=== PATIENT | male | born 1995 | race Caucasian/White ===

== ENCOUNTER 2019-09-22 14:45 | Emergency (ER) | payer BC, SELFPAY ==
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
[2019-09-22 14:52] VITALS: BP 145/87; PULSE 89; RESP 18; O2SAT 100
[2019-09-22] MEDS: SODIUM CHLORIDE 0.9% 1,000 ML 1000 ML IV (15:15)
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
[2019-09-22 15:19] VITALS: BP 129/88; PULSE 95; RESP 16; O2SAT 99
[2019-09-22 15:27] VITALS: BP 157/96; PULSE 102; RESP 26; O2SAT 97; O2SAT 99
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
[2019-09-22 15:33] VITALS: BP 138/94; PULSE 103; RESP 24; O2SAT 100
--- NOTE | 2019-09-22 15:36 | PC.NURSE ---
Reduction complete. pt tolerated well. NAD. Pt awake alert and oriented and back to baseline post propofol. XR obtained for confirmation and sling applied
[2019-09-22] MEDS: PROPOFOL 200 MG/20 ML VIAL 105 MG IV (15:39)
[2019-09-22 16:15] VITALS: BP 132/79; PULSE 94; RESP 21; O2SAT 100
== END 2019-09-22 16:32 | disposition home or self-care (01) ==
PROVIDERS: Emergency Provider Emergency Medicine; PCP Family Medicine
DX: S43.015A Anterior dislocation of left humerus, initial encounter (principal); V86.56XA Driver of dirt bike or motor/cross bike injured in nontraffic accident, initial encounter
CPT/HCPCS: 23650; 36415; 73030; 99152; 99284; 99285; J2704